=== PATIENT | female | born 1975 ===

== ENCOUNTER 2017-01-09 21:19 | Emergency (ER) | payer MEDICAID ==
[2017-01-09 21:29] VITALS: RESP 18; TEMP 98.4; O2SAT 99
--- NOTE | 2017-01-09 21:35 | ED PDOC ---
HPI: General Adult Time Seen by Provider: 01/09/17 21:33 Chief Complaint (Nursing): ENT Problem Chief Complaint (Provider): Headache History Per: Patient History/Exam Limitations: no limitations Current Symptoms Are (Timing): Still Present Additional Complaint(s): 41-year-old female with no past medical history presents to emergency department complaining of right-sided headache that started 2 days ago with associated right ear pain. Patient states that pain comes and goes and she has not taken anything for pain relief. She denies any trauma, no dizziness or vision changes. Patient was nauseous yesterday but this has since resolved. No hearing loss, vomiting, fever, chills or neck pain. Patient rates her pain as a 9 out of 10. Patient states she normally does not get headaches and became concerned prompting ED visit this evening. PMD: Dr. Rosalind FERNANDEZ Past Medical History Reviewed: Historical Data, Nursing Documentation, Vital Signs Vital Signs: Last Vital Signs Temp 98.4 F 01/09/17 21:24 Pulse 84 01/09/17 21:24 Resp 18 01/09/17 21:24 BP 144/100 H 01/09/17 21:24 Pulse Ox 99 01/09/17 21:47 - Medical History PMH: No Chronic Diseases - Surgical History Surgical History: Appendectomy - Family History Family History: States: No Known Family Hx - Living Arrangements Living Arrangements: With Family - Social History Current smoker - smoking cessation education provided: No Alcohol: Social Drugs: Denies - Home Medications Home Medications: Ambulatory Orders Medication Instructions Recorded Amoxicillin/Clavulanate [Augmentin 1 tab PO BID #14 tab 01/09/17 875 MG-125 MG] - Allergies Allergies/Adverse Reactions: Allergies Allergy/AdvReac Type Severity Reaction Status Date / Time No Known Allergies Allergy Verified 01/09/17 21:32 Review of Systems ROS Statement: Except As Marked, All Systems Reviewed And Found Negative Constitutional: Negative for: Fever Eyes: Negative for: Vision Change ENT: Positive for: Ear Pain (right) Gastrointestinal: Positive for: Nausea (yesterday, now resolved). Negative for : Vomiting Neurological: Positive for: Headache (x 2 days). Negative for: Dizziness Physical Exam - Reviewed Nursing Documentation Reviewed: Yes Vital Signs Reviewed: Yes - Physical Exam Appears: Positive for: Well, Non-toxic, No Acute Distress Head Exam: Positive for: ATRAUMATIC, NORMAL INSPECTION, NORMOCEPHALIC Skin: Positive for: Normal Color. Negative for: Rash ENT: Positive for: Normal ENT Inspection, TM Is/Are (Normal bilaterally) Cardiovascular/Chest: Positive for: Regular Rate, Rhythm. Negative for: Murmur Respiratory: Positive for: Normal Breath Sounds. Negative for: Accessory Muscle Use, Respiratory Distress Neurologic/Psych: Positive for: Alert, filer metal patterns II-XII (grossly intact), Oriented (x3 ), Gait (steady). Negative for: Motor/Sensory Deficits, Aphasia, Facial Droop - Laboratory Results Urine POC: Negative - ECG O2 Sat by Pulse Oximetry: 99 (RA) Pulse Ox Interpretation: Normal - Other Rad CT head X-Ray: Read By Radiologist Medical Decision Making Medical Decision Making: Time: 21:33 Initial Impression: Headache x 2 days Initial Plan: --Head CT --Urine Preg --Tylenol 975 mg PO --Reevaluation CT head: IMPRESSION: No acute intracranial hemorrhage, or suspicious mass effect. Findings suggestive of mastoiditis, for which clinical correlation is needed. Repeat BP: 115/75 Patient aware of above findings. She states headache resolved after Tylenol. Patient with right ear pain, nontender mastoid. Given the above findings on CAT scan, we'll cover patient with Augmentin prescription. Advised NSAIDs for pain relief and follow up with primary doctor in 1-2 days. Scribe Attestation: Documented by Myra Felder, acting as a scribe for Daja Smyth PA-C. Provider Scribe Attestation: All medical record entries made by the Scribe were at my direction and personally dictated by me. I have reviewed the chart and agree that the record accurately reflects my personal performance of the history, physical exam, medical decision making, and the department course for this patient. I have also personally directed, reviewed, and agree with the discharge instructions and disposition. Disposition - Clinical Impression Clinical Impression: Headache, Mastoiditis of right side, Right ear pain - Patient ED Disposition Is Patient to be Admitted: No Counseled Patient/Family Regarding: Studies Performed, Diagnosis, Need For Followup, Rx Given - Disposition Referrals: Jerel Boyer MD [Family Provider] - Disposition: Routine/Home Disposition Time: 22:38 Condition: IMPROVED Additional Instructions: Prescription medications as directed. [id number] Tylenol or Advil for pain as needed. Follow up with primary doctor in 1-2 days. Prescriptions: Amoxicillin/Clavulanate [Augmentin 875 MG-125 MG] 1 tab PO BID #14 tab Instructions: Mastoiditis (ED), Earache (ED), General Headache (ED) Forms: [employer] ([place]ian)
--- NOTE | 2017-01-09 22:28 | CT ---
EXAM: CT Head Without Intravenous Contrast CLINICAL HISTORY: 41 years old, female; Pain; Headache; Other: Right sided, rt ear pain; Additional info: Headache for 3 days TECHNIQUE: Axial computed tomography images of the head/brain without intravenous contrast. All CT scans at this facility use one or more dose reduction techniques, viz.: automated exposure control; ma/kV adjustment per patient size (including targeted exams where dose is matched to indication; i.e. head); or iterative reconstruction technique. Coronal and sagittal reformatted images were created and reviewed. COMPARISON: No relevant prior studies available. FINDINGS: Brain: No acute intracranial hemorrhage. No significant white matter disease. No edema. Ventricles: No significant ventriculomegaly. Bones: No acute displaced fracture. Sinuses: Unremarkable as visualized. No acute sinusitis. Mastoid air cells: Opacification of the right-sided mastoid air cells. IMPRESSION: No acute intracranial hemorrhage, or suspicious mass effect. Findings suggestive of mastoiditis, for which clinical correlation is needed.
[2017-01-09 22:38] VITALS: BP 115/75; PULSE 73
== END 2017-01-09 22:42 | disposition home or self-care (01) ==
LOC: H.ER 21:19
DX: H70.91 Unspecified mastoiditis, right ear (principal); R51 Headache; H92.01 Otalgia, right ear